=== PATIENT | female | born 1995 | race Caucasian/White ===

== ENCOUNTER 2020-11-22 08:00 | Outpatient (CLI) | payer OTHER ==
[2020-11-22 17:53] LABS: BASOPHILS # (AUTO) 0.1 10^3/uL (0.0-0.1); EOSINOPHILS # (AUTO) 0.5 10^3/uL (0.0-0.7); EOSINOPHILS % (AUTO) 7.2 %; HCT - HEMATOCRIT 40.8 % (37.0-47.0); HGB - HEMOGLOBIN 13.7 g/dL (12.0-16.0); LYMPHOCYTES # (AUTO) 2.3 10^3/uL (1.5-3.5); LYMPHOCYTES % (AUTO) 31.6 %; MEAN CORPUSCULAR HGB CONC 33.6 g/dL (32.0-36.0); MEAN CORPUSCULAR VOLUME 89.3 fL (81.0-99.0); MEAN PLATELET VOLUME 9.6 fL (7.9-10.8); MONOCYTES # (AUTO) 0.6 10^3/uL (0.0-1.0); MONOCYTES % (AUTO) 8.7 %; NEUTROPHILS # (AUTO) 3.7 10^3/uL (1.5-6.6); NEUTROPHILS % (AUTO) 51.4 %; PLT - PLATELET COUNT 379 10^3/uL (130-450); RED BLOOD COUNT 4.57 10^6/uL (4.20-5.40); RED CELL DISTRIBUTION WIDTH 12.3 % (12.0-15.0); WHITE BLOOD COUNT 7.1 x10^3/uL (4.8-10.8)
[2020-11-22 18:19] LABS: THYROID STIMULATING HORMONE 2.73 uIU/mL (0.34-5.60)
== END 2020-11-22 23:59 | disposition home or self-care (01) ==
LOC: LAB.WCP 08:00
PROVIDERS: ATTEND Physician Assistant Medical
DX: Z00.00 Encounter for general adult medical examination without abnormal findings (principal)
CPT/HCPCS: 36415; 84443; 85025

== ENCOUNTER 2021-05-20 16:41 | Outpatient (CLI) | payer OTHER ==
[2021-05-20 18:06] LABS: BASOPHILS # (AUTO) 0.1 10^3/uL (0.0-0.1); BASOPHILS % (AUTO) 0.5 %; EOSINOPHILS # (AUTO) 0.2 10^3/uL (0.0-0.7); EOSINOPHILS % (AUTO) 2.2 %; HCT - HEMATOCRIT 40.2 % (37.0-47.0); HGB - HEMOGLOBIN 13.4 g/dL (12.0-16.0); LYMPHOCYTES # (AUTO) 2.4 10^3/uL (1.5-3.5); MEAN CORPUSCULAR HGB CONC 33.3 g/dL (32.0-36.0); MEAN PLATELET VOLUME 8.7 fL (7.9-10.8); MONOCYTES # (AUTO) 0.8 10^3/uL (0.0-1.0); MONOCYTES % (AUTO) 7.4 %; NEUTROPHILS # (AUTO) 6.9 10^3/uL (1.5-6.6); NEUTROPHILS % (AUTO) 66.6 %; PLT - PLATELET COUNT 362 10^3/uL (130-450); RED BLOOD COUNT 4.62 10^6/uL (4.20-5.40); WHITE BLOOD COUNT 10.3 x10^3/uL (4.8-10.8)
--- NOTE | 2021-05-21 11:08 | Ultrasound Report ---
PROCEDURE: OB First Trimester w/TV INDICATIONS: POSITIVE TEST OUTSIDE/PRIOR DATING DATA: Last menstrual period (LMP): 03/28/2021. LMP-based estimated date of delivery (KELLEE): 01/02/2022. First dating scan (date and location): 05/20/2021. Estimated date of delivery (KELLEE) from first dating scan: Unknown. TECHNIQUE: Real-time scanning was performed of the fetus and maternal pelvic organs, with image documentation. Endovaginal scanning was also performed to better visualize the fetus and maternal ovaries. COMPARISON: None FINDINGS: There is a probable gestational sac without a crown-rump length or heartbeat measuring 1.2 cm, 6 weeks 0 days. Measurement variability in dating: +/- 4 weeks by LMP, +/- 7 days by mean sac diameter (use before 6 weeks gestation if crown-rump length not able to be measured), +/- 5 days by crown-rump length (6-12 weeks gestation). Maternal organs: Right ovarian corpus luteal cyst. IMPRESSION: Probable very early intrauterine with mean sac diameter, with a crown-rump length heartbeat present. Comment: Recommend correlation with serial beta-hCGs and possible repeat ultrasound in 1-2 weeks. Reviewed by: Juan Bassett MD on 05/21/2021 11:07 AM PST Approved by: Juan Bassett MD on 05/21/2021 11:07 AM PST Station ID: [id number]
[2021-05-21 11:41] LABS: HEPATITIS B SURFACE ANTIGEN NON-REACTIVE (NON-REACTIVE); HEPATITIS C ANTIBODY NON-REACTIVE (NON-REACTIVE)
[2021-05-21 14:40] LABS: HIV AG/AB 4TH GEN NON-REACTIVE (NON-REACTIVE)
== END 2021-05-20 16:42 | disposition home or self-care (01) ==
LOC: DI 16:41
PROVIDERS: ATTEND Nurse Practitioner Obstetrics & Gynecology
DX: Z32.01 Encounter for pregnancy test, result positive (principal); Z36.89 Encounter for other specified antenatal screening
CPT/HCPCS: 36415; 85025; 86592; 86762; 86787; 86803; 86850; 86900; 86901; 87340; 87389

== ENCOUNTER 2021-06-03 08:00 | Outpatient (CLI) | payer OTHER ==
[2021-06-04 13:25] LABS: BILIRUBIN,URINE NEGATIVE (NEGATIVE); GLUCOSE, URINE (UA) NEGATIVE (NEGATIVE); KETONES,URINE (UA) NEGATIVE (NEGATIVE); LEUKOCYTE ESTERASE, URINE NEGATIVE (NEGATIVE); NITRITE,URINE NEGATIVE (NEGATIVE); OCCULT BLOOD,URINE TRACE-INTA (NEGATIVE); PH,URINE 6.5 PH (5.0-7.5); PROTEIN,URINE NEGATIVE (NEGATIVE); UROBILINOGEN,URINE 0.2 (NORMAL) E.U./dL (NORMAL)
[2021-06-04 13:53] LABS: BACTERIA,URINE None Seen /HPF (None Seen); CLARITY,URINE CLEAR (CLEAR); RBC,URINE None Seen /HPF (0-5); SQUAMOUS EPITHELIAL CELL,UR NONE SEEN (<= Few); WBC,URINE 0-3 /HPF (0-5)
[2021-06-04 22:02] LABS: CHLAMYDIA TRACHOMATIS DNA NEGATIVE (NEGATIVE); NEISSERIA GONORRHOEAE DNA NEGATIVE (NEGATIVE); TRICHOMONAS VAGINALIS DNA NEGATIVE (NEGATIVE)
== END 2021-06-03 23:59 ==
LOC: LAB.WC 08:00
PROVIDERS: ATTEND Nurse Practitioner Obstetrics & Gynecology
DX: Z34.90 Encounter for supervision of normal pregnancy, unspecified, unspecified trimester (principal)
CPT/HCPCS: 81001; 87086; 87491; 87591; 87661

== ENCOUNTER 2021-06-03 18:46 | Outpatient (CLI) | payer OTHER ==
--- NOTE | 2021-06-03 19:51 | Ultrasound Report ---
PROCEDURE: OB First Trimester w/TV INDICATIONS: POSITIVE TEST OUTSIDE/PRIOR DATING DATA: Last menstrual period (LMP): 03/28/2021. LMP-based estimated date of delivery (KELLEE): 01/02/2022. First dating scan (date and location): 06/03/2021. Estimated date of delivery (KELLEE) from first dating scan: 01/13/2022. The below data below was generated using the study generated KELLEE of 01/13/2022 TECHNIQUE: Real-time scanning was performed of the fetus and maternal pelvic organs, with image documentation. Endovaginal scanning was also performed to better visualize the fetus and maternal ovaries. COMPARISON: 05/20/2021 FINDINGS: Embryo: Single intrauterine gestational sac is seen with a pole and yolk sac noted. [place]-rump length measures 1.6 cm. Estimated gestational age based on current study is 8 weeks, 0 day. Heart rate: 162 bpm. No perigestational hemorrhage is seen. Measurement variability in dating: +/- 4 weeks by LMP, +/- 7 days by mean sac diameter (use before 6 weeks gestation if crown-rump length not able to be measured), +/- 5 days by crown-rump length (6-12 weeks gestation). Maternal organs: Left ovary is not well visualized on the current study. Right ovary is seen. 1.3 x 1 .6 x 1.5 cm corpus luteal cyst is again noted in right ovary. IMPRESSION: 1. Single live intrauterine with fetus and yolk sac seen. Estimated gestational age is 8 we eks, 0 day. The heart rate is 162 bpm. 2. Stable appearing corpus luteal cyst in right ovary. Reviewed by: Atul Chandler MD on 06/03/2021 7:50 PM PST Approved by: Atul Chandler MD on 06/03/2021 7:50 PM PST Station ID: [id number]
== END 2021-06-03 18:47 | disposition home or self-care (01) ==
LOC: DI 18:46
PROVIDERS: ATTEND Nurse Practitioner Obstetrics & Gynecology
DX: O34.81 Maternal care for other abnormalities of pelvic organs, first trimester (principal); N83.11 Corpus luteum cyst of right ovary; Z3A.08 8 weeks gestation of pregnancy

== ENCOUNTER 2021-09-16 14:05 | Outpatient (CLI) | payer OTHER ==
--- NOTE | 2021-09-16 17:50 | Ultrasound Report ---
PROCEDURE: OB Detailed Eval INDICATIONS: SUPERVISION OF OUTSIDE/PRIOR DATING DATA: Last menstrual period (LMP): 03/28/2021. LMP-based estimated date of delivery (KELLEE): 01/02/2022. First dating scan (date and location): 06/03/2021. Estimated date of delivery (KELLEE) from first dating scan: 01/13/2022. The below data below was generated using the ultrasound KELLEE of 01/13/2022. TECHNIQUE: Real-time scanning was performed of the fetus, with image documentation and biometric measurements. COMPARISON: 06/03/2021. FINDINGS: General: A single living intrauterine gestation is present. Presentation: Cephalic Placenta: Placental position is posterior, without previa. Amniotic fluid index: 16.9 cm, normal for gestational age. Largest pocket 4.9 cm. heart rate: 145 beats per minute. Maternal cervical canal: 5.4 cm long; normal length is 2.5 cm or more. biometrics: Biparietal diameter: 5.7 cm, 23 weeks 2 days Head circumference: 20.1 cm, 22 weeks 6 days Abdominal circumference: 18.9 cm, 23 weeks 4 days Femur length: 4.3 cm, 24 weeks 1 day Estimated gestational age from initial scan: 23 weeks 0 days. Composite gestational age from present scan: 23 weeks 3 days Estimated weight and percentile: 623 g, 78th percentile Measurement variability in biometric dating: +/- 10 days from 12-20 weeks gestation, +/- 2 weeks from 20-30 weeks gestation, +/- 3 weeks at 30 weeks gestation or later. Anatomic survey: Neuro: Ventricles are normal at less than 10 mm. Cisterna magna is normal at 3-11 mm. Cerebellum i s normal in size and morphology. Nuchal skin fold: Normal at less than 6 mm between 14 and 20 weeks gestational age. Face: Nose and lips, facial profile are normal. Spine: No evidence for spina bifida. Heart: 4-chambered heart is present, with normal ventricular outflow tracts. Diaphragm: Diaphragm is intact. Stomach: Left-sided stomach is present. Kidneys: No hydronephrosis. Normal is less than 5 mm in 2nd trimester, less than 7 mm in 3rd trimester. Cord: 3 vessel cord has orthotopic insertion. Bladder: Normal in size. Extremities: All 4 extremities are visualized. IMPRESSION: 1. Shore living intrauterine at 23 weeks 3 days based on today's ultrasound. This is co ncordant with the first trimester ultrasound. Fetus is at the 78th percentile for weight. 2. Normal placenta and amniotic fluid. 3. Normal and complete anatomic survey. Reviewed by: Ebenezer Amaral MD on 09/16/2021 5:48 PM PDT Approved by: Ebenezer Amaral MD on 09/16/2021 5:48 PM PDT Station ID: [id number]
== END 2021-09-16 14:06 | disposition home or self-care (01) ==
LOC: DI 14:05
PROVIDERS: ATTEND Obstetrics & Gynecology
DX: Z34.02 Encounter for supervision of normal first pregnancy, second trimester (principal); Z36.89 Encounter for other specified antenatal screening

== ENCOUNTER 2022-01-07 07:22 | Inpatient (IN) | payer OTHER ==
[2022-01-07] MEDS ORDERED: AMPICILLIN 2 GM in SODIUM CHLORIDE 0.9% MINIBAG 100 ML IV ONE (07:56)
[2022-01-07] MEDS ORDERED: miSOPROStoL 200 MCG TABLET BC PRN (07:56)
[2022-01-07] MEDS ORDERED: LIDOCAINE-MPF 1% 30 ML VIAL ID PRN (07:56)
[2022-01-07] MEDS ORDERED: ONDANSETRON 4 MG/2 ML VIAL IVP PRN (07:56)
[2022-01-07] MEDS ORDERED: TRANEXAMIC ACID IN NACL 1,000 MG/100 ML BAG IV PRN (07:56)
[2022-01-07] MEDS ORDERED: CARBOPROST TROMETHAMINE 250 MCG/ML AMP IM PRN (07:56)
[2022-01-07] MEDS ORDERED: OXYTOCIN 10 UNIT/ML VIAL IM PRN (07:56)
[2022-01-07] MEDS ORDERED: OXYTOCIN/SODIUM CHLORIDE 500 ML IV PRN (07:56)
[2022-01-07] MEDS ORDERED: METHYLERGONOVINE 0.2 MG/ML VIAL IM PRN (07:56)
[2022-01-07] MEDS ORDERED: SODIUM CHLORIDE FLUSH 0.9% 10 ML SYRINGE IVP PRN (07:56)
--- NOTE | 2022-01-07 08:01 | HISTORY & PHYSICAL EXAMINATION ---
Admit History - Visit Reason Visit Reason: Other - : 2 Parity: 1 Premature: 0 Ectopic: 0 : 1 Care: positive[facility] Risk/History: positive: induced HTN Complications This : positive: induced HTN Smoking Status: Never smoker - Mother's Labs Mother's Blood Type: positive: O Mother's RH: positive: Positive GBS: positive: Group B Strep Positive Rubella Status: positive: Immune Meds/Allgy - Allergies Allergies/Adverse Reactions: Allergies Allergy/AdvReac Type Severity Reaction Status Date / Time No Known Drug Allergies Allergy Verified 01/07/22 08:43 Review of Systems - Constitutional Constitutional: denies: Fatigue, Fever, Chills, Malaise - Eyes Eyes: denies: Blurred vision, Spots in vision, Dipolpia - Cardiovascular Cariovascular: reports: Edema. denies: Irregular heart rate, Palpitations, Chest pain - Respiratory Respiratory: denies: Cough, Wheezing, SOB at rest - Gastrointestinal Gastrointestinal: denies: Abdominal pain, Constipation, Diarrhea, Change in bowel habits, Nausea, Vomiting - Genitourinary Genitourinary: denies: Dysuria - Integumentary Integumentary: denies: Rash, Pruritis - Neurological Neurological: denies: Headache Physical - Abdominal Exam Vital Signs: Temp Pulse Resp BP Pulse Ox 37.7 C 127 H 20 146/97 H 01/07/22 07:31 01/07/22 07:31 01/07/22 07:31 01/07/22 07:31 Contraction Frequency (min/apart): occasional Contraction Intensity: positive: Mild Uterine Resting Tone: positive: Soft - Monitoring Heart Rate Baseline: 140 Strip Review: positive: Category I - Presentation Presentation: positive: Vertex - Vaginal Exam Membranes: positive: Membranes intact Dilation (in cm): 2-3 Effacement (%): 50 Station: positive: -3 Cervical Position: positive: Posterior - Speculum Exam Speculum Exam Performed: positive: No Plan for Labor - Plan For Labor I expect patient to be DC'd or transferred within 96 hours.: Yes Plan for Labor: This 26yo @ 39.1wks gestation by 8.0wk U/S presented to [facility] for medical induction of labor secondary to gestational hypertension. She has been a patient of [facility] since her transfer of care from [facility] at 27wks gestation. She has received consistent care through the duration of her . She has a history of gestational hypertension with her first and was induced at 39wks. She has been taking ASA 81mg daily as prescribed and her blood pressures have remained WNL until yesterday and they have remained only mildly elevated. She denies headaches, visual disturbances, RUQ or epigastric pain. She is also noted to be GBS positive. She is supported by her Hari today. Dating Criteria: LMP: 03/28/2021 KELLEE by LMP 01/02/2022 Initial U/S @ 8.0wks NOT c/w LMP dating (KELLEE by U/S 01/13/2002) FINAL KELLEE 01/13/2022 OB Hx: G1: @ 40.4wks gestation, 11hr labor, 55 min second stage, epidural. Female 7lb 12oz G2: Current Medications: PNV, 81mg ASA daily Allergies: NKDA PMHx: Anxiety Surgical Hx: none Social Hx: Never smoker. No ETOH or IVDA. 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 Family Hx: HTN - mom, dad; heart disease - PGM, MGM, MGF; stroke - MGM, MGF; Breast cancer - paternal aunt; Diabetes - MGM, MGF, mom, dad, uncle; Thyroid disorder - mother; Depression - mother, MGM, MGF course: O pos/Rubella Immune VZV: Immune Genetic testing: declined FAS: 09/16/2021 WNL. Posterior placenta, no previa. Size c/w dating. 3VC. Influenza: 03/2021 COVID Vaccine: #2 10/2020 Tdap 10/14/2021 GBS POSITIVE HSV: Denies in self and partner Physical Exam: Normocephalic, atraumatic Heart RRR w/o M/G/R Lungs CTAB. Abdomen gravid, soft, nontender FHR baseline 140s, moderate variability, + accels, no decels Contractions palpate mild occasionally via tocometry SVE deferred today (yesterday was 2-3/50/-3, posterior, vertex) Bilateral LE's trace edema Mood is good Labs: WBC 11.7 RBC 3.83 Hgb 11.2 Hct 33.0 PLT 277 Creatinine 0.5 AST 18 ALT 16 Urine creatinine 43.5 Urine protein <6 Urine protein/creatinine ratio (not reportable) Assessment: 26yo @ 39.1wks gestation by 8.0wk U/S Gestational hypertension GBS POSITIVE FHR Category I Plan: Admit for active management/medical induction of labor Pre induction cervical ripening with misoprostol 50mcg BC q 4 hrs Continuous monitoring Initiation ampicillin for GBS prophylaxis per protocol Jacuzzi PRN. Nitrous oxide PRN. Epidural per maternal request. Encouraged ambulation and position changes. Anticipate .
[2022-01-07 08:41] LABS: BASOPHILS % (AUTO) 0.3 %; EOSINOPHILS # (AUTO) 0.2 10^3/uL (0.0-0.7); EOSINOPHILS % (AUTO) 1.7 %; HGB - HEMOGLOBIN 11.2 g/dL (12.0-16.0); LYMPHOCYTES # (AUTO) 1.8 10^3/uL (1.5-3.5); LYMPHOCYTES % (AUTO) 15.7 %; MEAN CORPUSCULAR HEMOGLOBIN 29.2 pg (27.0-31.0); MEAN CORPUSCULAR HGB CONC 33.9 g/dL (32.0-36.0); MEAN CORPUSCULAR VOLUME 86.2 fL (81.0-99.0); MEAN PLATELET VOLUME 9.8 fL (7.9-10.8); MONOCYTES # (AUTO) 0.9 10^3/uL (0.0-1.0); MONOCYTES % (AUTO) 7.7 %; NEUTROPHILS # (AUTO) 8.6 10^3/uL (1.5-6.6); NEUTROPHILS % (AUTO) 73.8 %; PLT - PLATELET COUNT 277 10^3/uL (130-450); RED BLOOD COUNT 3.83 10^6/uL (4.20-5.40); RED CELL DISTRIBUTION WIDTH 13.3 % (12.0-15.0); WHITE BLOOD COUNT 11.7 x10^3/uL (4.8-10.8)
[2022-01-07 08:57] LABS: ALBUMIN 2.9 g/dL (3.2-5.5); ALBUMIN/GLOBULIN RATIO 0.8 (1.0-2.2); BILIRUBIN,TOTAL 0.6 mg/dL (0.2-1.0); CALCIUM 9.6 mg/dL (8.5-10.3); CREATININE 0.5 mg/dL (0.4-1.0); POTASSIUM 3.8 mmol/L (3.5-5.0); TOTAL PROTEIN 6.5 g/dL (6.7-8.2)
[2022-01-07] MEDS ORDERED: SODIUM CHLORIDE FLUSH 0.9% 10 ML SYRINGE IVP SCH (09:00)
[2022-01-07] MEDS: LACTATED RINGERS 1,000 ML IV SCH ×2 (09:05→20:12)
[2022-01-07] MEDS: miSOPROStoL 100 MCG TABLET BC SCH ×2 (09:08→13:07)
[2022-01-07 09:23] LABS: CREATININE,URINE 43.5 mg/dL
[2022-01-07 09:52] LABS: TOTAL PROTEIN,URINE TIMED < 6 mg/dL
[2022-01-07] MEDS: AMPICILLIN 1 GM in SODIUM CHLORIDE 0.9% MINIBAG 100 ML IV SCH ×3 (13:08→21:25)
[2022-01-07] MEDS ORDERED: ROPIVACAINE 0.2% 200 MG/100 ML BAG EP ONE (20:37)
[2022-01-07] MEDS ORDERED: ePHEDrine 50 MG/ML VIAL IVP PRN (20:54)
[2022-01-07] MEDS ORDERED: NALOXONE 0.4 MG/ML VIAL IVP PRN (20:54)
[2022-01-07] MEDS ORDERED: ROPIVACAINE 0.2% 200 MG/100 ML BAG EP PRN (20:54)
--- NOTE | 2022-01-07 20:58 | ANESTHESIA ---
Pre-Anesthesia VS, & Labs - Diagnosis induction of labor - Procedure vaginal delivery Vital Signs: Temp Pulse Resp BP Pulse Ox 37.7 C 127 H 20 146/97 H 01/07/22 07:31 01/07/22 07:31 01/07/22 07:31 01/07/22 07:31 Height: 5 ft 4 in Weight (kg): 99.79 kg Body Mass Index: 37.8 BMI Classification: Obese - NPO Other (clear liquids) - Is Patient ?: Yes - Lab Results Current Lab Results: Laboratory Tests 01/07/22 08:34: Sodium 137, Potassium 3.8, Chloride 103, Carbon Dioxide 24, Anion Gap 10.0, BUN 7, Creatinine 0.5, Estimated GFR (MDRD) 147, Glucose 74, Calcium 9.6, Total Bilirubin 0.6, AST 18, ALT 16, Alkaline Phosphatase 137 H, Total Protein 6.5 L, Albumin 2.9 L, Globulin 3.6, Albumin/Globulin Ratio 0.8 L 01/07/22 08:34: WBC 11.7 H, RBC 3.83 L, Hgb 11.2 L, Hct 33.0 L, MCV 86.2, MCH 29.2, MCHC 33.9, RDW 13.3, Plt Count 277, MPV 9.8, Neut # (Auto) 8.6 H, Lymph # (Auto) 1.8, [place] # (Auto) 0.9, Eos # (Auto) 0.2, Baso # (Auto) 0.0, Absolute Nucleated RBC 0.00, Nucleated RBC % 0.0 01/07/22 08:30: Blood Type O POSITIVE, Antibody Screen NEGATIVE Lab results reviewed: Yes Fish Bones: 01/07/22 08:34 01/07/22 08:34 Home Medications and Allergies Active Medications Carboprost Tromethamine (Carboprost Tromethamine 250 Mcg/Ml Amp) 250 mcg IM Q15M PRN PRN Reason: Step 4: Hemorrhage protocol Stop: 01/12/22 07:57 Ephedrine Sulfate (Ephedrine 50 Mg/Ml Vial) 5 mg IVP Q5M PRN PRN Reason: For SBP<100;give until SBP>100 Oxytocin/Sodium Chloride (Pitocin/Sodium Chloride) 500 mls @ 999 mls/hr IV PRN PRN; Protocol PRN Reason: POST- HEMORR PREVENTION Stop: 01/12/22 07:57 Tranexamic Acid (Tranexamic 1,000 Mg/100ml-Nacl) 1,000 mg in 100 mls @ 600 mls/hr IV .ONCE PRN PRN Reason: EBL >1200mL and within 3hr Stop: 01/12/22 07:57 Ampicillin Sodium 1 gm/ Sodium (Chloride) 100 mls @ 200 mls/hr IV Q4H [facility] Last Infusion: 01/07/22 17:54 Dose: Infused Lactated Ringer's (Lr) 1,000 mls @ 100 mls/hr IV .Q10H [facility] Last Admin: 01/07/22 20:12 Dose: 999 mls/hr Ropivacaine (Naropin 0.2%) 200 mg in 100 mls @ 0 mls/hr EP PRN PRN; Protocol PRN Reason: PAIN Lidocaine HCl (Lidocaine-Mpf 1% 30 Ml Vial) 30 ml ID .ONCE PRN PRN Reason: PERINEAL REPAIR Stop: 01/12/22 07:57 Methylergonovine Maleate (Methylergonovine 0.2 Mg/Ml Vial) 0.2 mg IM .ONCE PRN PRN Reason: Step 2: Hemorrhage protocol Stop: 01/12/22 07:57 Misoprostol (Misoprostol 200 Mcg Tablet) 800 mcg BC .ONCE PRN PRN Reason: Step 3: Hemorrhage protocol Stop: 01/12/22 07:57 Misoprostol (Misoprostol 100 Mcg Tablet) 50 mcg BC Q4HR [facility] Last Admin: 01/07/22 13:07 Dose: 50 mcg Naloxone HCl (Naloxone 0.4 Mg/Ml Vial) 0.1 mg IVP Q2M PRN PRN Reason: RR<8 Ondansetron HCl (Ondansetron 4 Mg/2 Ml Vial) 4 mg IVP Q4HR PRN PRN Reason: Nausea / Vomiting Oxytocin (Oxytocin 10 Unit/Ml Vial) 10 unit IM .ONCE PRN PRN Reason: Step one: If no IV access Stop: 01/12/22 07:57 Sodium Chloride (Sodium Chloride Flush 0.9% 10 Ml Syringe) 10 ml IVP 0100,0900,1700 [facility] Sodium Chloride (Sodium Chloride Flush 0.9% 10 Ml Syringe) 10 ml IVP PRN PRN PRN Reason: NEEDED PER PROVIDER ORDERS Allergies/Adverse Reactions: Allergies Allergy/AdvReac Type Severity Reaction Status Date / Time No Known Drug Allergies Allergy Verified 01/07/22 08:43 Anes History & Medical History - Anesthetic History Family history of Anesthesia Complications: Denies Family history of Malignant Hyperthermia: Denies - Medical History Cardiovascular: reports: Hypertension (gestational hypertension) Pulmonary: reports: None Gastrointestinal: reports: None Urinary: reports: None Neuro: reports: None Musculoskeletal: reports: None Endocrine/Autoimmune: reports: None Blood Disorders: reports: None Skin: reports: None Smoking Status: Never smoker Psychosocial: reports: No issues indicated History of Cancer?: No - Obstetrical History : 2 Parity: 1 Events: reports: induced HTN Complications: reports: induced HTN Exam General: Alert, Oriented x3, Cooperative, No acute distress Dental: WNL Mouth Openin Fingerbreadth Neck Mobility: Normal Mallampati classification: II Thyromental Distance: 4-6 cm Plan Anesthesia Type: Epidural Consent for Procedure(s) Verified and Reviewed: Yes Code Status: Attempt Resuscitation ASA classification: 2-Mild systemic disease Is this case an emergency?: No
--- NOTE | 2022-01-07 20:58 | PROVIDER PROGRESS NOTE ---
Labor Progress Note - Uterine Monitoring Uterine Monitoring Mode: positive: External toco Contraction Frequency (min/apart): 2-3 Contraction Intensity: positive: Moderate Uterine Resting Tone: positive: Soft - Monitoring Monitor Mode: positive: External ultrasound Heart Rate Baseline: 140 Heart Rate Variability: positive: Moderate (6-25 bmp) Accelerations: positive: Present, 15x15 Decelerations: positive: None Strip Review: positive: Category I - Vaginal Exam Dilation (in cm): 4-5 Effacement (%): 75 Station: -2 Cervical Position: Posterior - Labor Progress Note Labor Progress Note/Additional Text: S: Feeling more intense discomfort with contractions and rating them 4/10 which is much different than she was feeling previously. Her mood is good and she is feeling like she is ready for an epidural. supportive at the bedside. Continues to deny CANALES, visual disturbances, RUQ or epigastric pain. O: FHR baseline 140s, moderate variability, + accels, no decels. Was previously having occasional variables but following a 500cc fluid bolus this seems to have resolved. Contractions palpate moderate very 4-5 minutes with soft resting tone SVE 4-5/75/-2, posterior. Soft, vertex. Intact membranes A: 26yo @ 39.1wks gestation by 8wk U/S GBS POSITIVE Gestational hypertension Early labor FHR Category I P: Continuous monitoring. Reviewed available options for continued IOL to include AROM vs expectant management at this time and pt elects to proceed with AROM following her epidural placement. Anesthesia notified to present for placement of epidural. Continue Ampicillin for GBS prophylaxis per protocol. Encouraged rotation in bed on peanut ball once comfortable with epidural. AROM with next SVE. Anticipate .
[2022-01-07] MEDS ORDERED: OXYTOCIN/SODIUM CHLORIDE 500 ML IV SCH (23:20)
[2022-01-08] MEDS ORDERED: HYDROCORTISONE 1% CREAM 28 GM TUBE PR PRN (01:58)
[2022-01-08] MEDS ORDERED: WITCH HAZEL/GLYCERIN 1 PAD TOP PRN (01:58)
--- NOTE | 2022-01-08 02:12 | DELIVERY NOTE ---
Delivery Note - Labor Labor: positive: Augmented by ARM, Augmented by oxytocin - Delivery Method Delivery Method: positive: Spontaneous vaginal delivery - Cervical Ripening Method Cervical Ripening Method: positive: Misoprostil - Presentation Presentation: positive: Vertex, ACE - left occiput anterior - Nuchal Cord Nuchal Cord: positive: Present, Reduced - Amniotic Fluid Description Amniotic Fluid Description: positive: Clear - Episiotomy Type Episiotomy Type: positive: None - Laceration Laceration: positive: 2nd degree - Suture Suture Type: positive: Vicryl Suture Size: positive: 2-0 - Delivery Outcome Delivery Outcome: positive: Livebirth - [place]: positive: Placed in direct skin contact with mother, Bulb syringe, Stimulated, Warmed sex: positive: Female - Cord Cord: positive: 3 vessels - Placenta Placenta: positive: Intact, Spontaneous - Estimated Blood Loss Estimated Blood Loss (in cc): 200 - Post Delivery Events Post Delivery Events: positive: No post delivery events - Delivery Comments (Free Text/Narrative) Delivery Comments (Free Text/Narrative): Labor: This 26yo @ 39.2wks gestation by 8.0wk U/S presented on 01/07/2022 for medical induction of labor secondary to gestational hypertension. Cervix was 2-3/50/-3, posterior and vertex. FHR pattern demonstrated Category I pattern with intermittent periods of Category II pattern however overall remained reassuring. She received 2 doses of 50mcg BC miosprostol for pre- induction cervical ripening. Epidural placed per maternal request. AROM occurred at 2109 and was noted to be a large amount of clear fluid. Pitocin initiated for labor augmentation with titration per protocol for a maximum infusion rate of 2mU/mL. She received 4 doses of Ampicillin for GBS prophylaxis per protocol. She progressed to c/c/+2 at 0035. : Normal of viable female on 01/08/2022 @ 0116. Nuchal cord x 1 was reduced. The was placed on maternal abdomen, stimulated, dried, and placed skin to skin. 's were 8/9 at 1 and 5 minutes respectively. Pitocin a dministered via IV for hemostasis. The umbillical cord was allowed to stop pulsating at which time it was doubly clamped by CNM and cut by FOB. Cord blood was obtained. 3VC. Fundal massage and gentle cord traction applied for active management of the third stage. Placenta delivered spontaneously and intact at 0121. EBL 200mL. Fourth stage: Uterine fundus firm and there is no excessive bleeding. The perineum, vagina, and cervix were inspected and noted to have a 2nd degree laceration which was repaired using a 2-[address]-1 needle in standard fashion and under sterile conditions. Vaginal and rectal examinations completed following repair. Tissues well approximated. initiated. Family bonding well. Both mother and baby were left in stable condition.
[2022-01-08] MEDS: ACETAMINOPHEN 500 MG TABLET PO SCH ×3 (04:13→20:23)
[2022-01-08] MEDS: IBUPROFEN 800 MG TABLET PO SCH ×4 (04:13→22:33)
[2022-01-08] MEDS: DOCUSATE SODIUM 100 MG CAPSULE PO SCH ×2 (09:40→20:23)
[2022-01-09 08:21] VITALS: BP 127/64
[2022-01-09] MEDS: ACETAMINOPHEN 500 MG TABLET PO SCH (09:04)
[2022-01-09] MEDS: DOCUSATE SODIUM 100 MG CAPSULE PO SCH (09:04)
[2022-01-09] MEDS: IBUPROFEN 800 MG TABLET PO SCH (09:04)
--- NOTE | 2022-01-09 09:04 | Discharge Plan ---
Discharge Plan Problem Reviewed?: Yes Disposition: Home, Self Care Condition: Good Diet: Regular Activity Restrictions: No Restrictions Shower Restrictions: No Driving Restrictions: No Weight Bearing: Full Weight Instruction Topics: Vaginal After No Smoking: If you smoke, Please STOP! Call for help. Follow-up with: Mariah Doss CNM, ARNP [Provider Admit Priv/Credential] - 1 Week
--- NOTE | 2022-01-09 09:41 | DISCHARGE SUMMARY ---
Discharge Summary Condition at Discharge: Good Discharge Disposition: 01 Home, Self Care - HOSPITAL COURSE Hospital Course: Date of Admission: 01/07/2022 Date of Discharge: 01/09/2022 Diagnosis on Admission: 1. 26yo @ 39.1wks gestation by 8.0wk U/S 2. Gestational hypertension 3. GBS POSITIVE 4. FHR Category I Diagnosis on Discharge: 1. 26yo PPD#1 s/p TSVD viable female infant 2. Second degree perineal laceration - intact 3. Bottle feeding 4. Normal recovery Brief History: She is a patient of [facility] who presented on 01/07/2022 for medical induction of labor secondary to gestational hypertension. Upon arrival she was noted to be 2-3/50/-3, posterior and vertex. She was given 2 doses of 50mcg BC misoprostol for pre-induction cervical ripening. AROM occurred at 2109 and was noted to be a large amount of clear fluid. She was augmented with pitocin for a maximum infusion rate of 2mU/mL. She progressed to spontaneously deliver a viable female infant on 01/08/2022 at 0116. Apgars were 8/9 at 1 and 5 minutes respectively. EBL 200mL. The patient had a 2nd degree perineal laceration which was repaired with a 2-[address]-1 needle in standard fashion and under sterile conditions. She has been doing well in her course. She is ambulating and tolerating a regular diet. She is urinating [id number] difficulty and her lochia is normal. Her pain is well controlled with oral medications. She is bonding well with her baby and initially she breastfed but has now switched to formula which she feels is working better for her. Her blood pressures have returned to normal since delivery. She denies headaches, visual disturbances, right upper quadrant or epigastric pain. She will be discharged home today on day #1 with instructions to continue taking her vitamin while and to continue taking ibuprofen and tylenol over the counter as needed for pain management. She intends to follow up with myself at [facility] in 1 week for routine visit or sooner if needed. She has been given precautions to call if she has any worsening fevers, chills, abdominal pain, increased vaginal bleeding or foul smelling vaginal lochia. She verbalized understanding and agrees to above plan. She denies further questions or concerns at this time. Physical Exam: Heart RRR w/o M/G/R, lungs CTAB, abdomen gravid, soft, nontender, fundus firm at U, perineum intact, light lochia rubra, bilateral LE's trace edema. - ALLERGIES Allergies/Adverse Reactions: Allergies Allergy/AdvReac Type Severity Reaction Status Date / Time No Known Drug Allergies Allergy Verified 01/07/22 08:43 - LABS Result Diagrams: 01/07/22 08:34 01/07/22 08:34
--- NOTE | 2022-01-09 13:50 | Labor Flowsheet ---
Labor Flowsheet Datetime Report Generated by CPN: 01/09/2022 13:50 Datetime: 01/09/2022 08:04 VITAL SIGNS NBP Sys/Norma/Mean (mmHg): 127 : 64 : 80 Pulse: 93 Datetime: 01/08/2022 14:34 SpO2 (%): 99 Datetime: 01/08/2022 04:59 Stage of : Recovery Respirations: 18 Temperature (C): 36.7 Temperature Route: Oral PAIN Pain Scale: 3 Pain Presence: Intermittent Datetime: 01/08/2022 02:59 Pain Type: N/A Datetime: 01/08/2022 01:19 LaborFlag: Labor Datetime: 01/08/2022 01:15 Comments: Indeterminate FHT Datetime: 01/08/2022 01:10 FHR Baseline Rate : 100 Datetime: 01/08/2022 01:00 UTERINE ACTIVITY Monitor Mode: External Frequency (min): 2 - 4 Quality: Moderate Duration (sec): 60 - 80 Pattern: Normal: <= 5 Contractions in 10 Minutes Resting Tone (Palpate): Relaxed ASSESSMENT A Monitor Mode: External US FHR Baseline Changes: No Baseline Change Variability: Minimal - Undetectable to <=5 bpm Accelerations: 10X10 Decelerations: Variable Category: Category II Oxygen Method: Room Air Datetime: 01/08/2022 00:53 Monitor Interventions for FHR: Ultrasound Adjusted Datetime: 01/08/2022 00:50 Communication Comments: godfrey removed with 100 ml additional urine Datetime: 01/08/2022 00:35 VAGINAL EXAM Dilatation (cm): 10.0 Effacement (%): 100 Station: 2 Exam by: Donovan Mcknight Vaginal Bleeding: Normal Show Cervix, Consistency: Soft Cervix, Position: Anterior Datetime: 01/08/2022 00:30 Monitor Interventions for UA: [place] Adjusted Actions for Decelerations: Side to Side Datetime: 01/08/2022 00:17 Contraction Comments: Relaxed resting tones palpated by RN Datetime: 01/07/2022 23:45 MEDICATIONS Pitocin (milliunits): Started @ 2 Medication Comments: Order is to start at 2 mu then increase by 1 mu evewry 30 min Datetime: 01/07/2022 21:59 Vital Sign Comments: MD updated on slight elevation of temp. No other orders received. Datetime: 01/07/2022 21:10 Membrane Status: Ruptured Membranes Rupture Method: Artificial Amniotic Fluid Color: Clear Amniotic Fluid Amount: Large Amniotic Fluid Odor: Normal Datetime: 01/07/2022 21:08 COMMUNICATION Communication: RN at Bedside Datetime: 01/07/2022 20:49 Epidural Procedure: Completed Anesthesia Comments: 10 ml every 50 min PCEA Datetime: 01/07/2022 20:31 PROCEDURE TIME OUT Procedure Type: epidural Datetime: 01/07/2022 20:30 ANESTHESIA Epidural Positioning: Sitting Datetime: 01/07/2022 20:27 Procedure Verify: Correct Patient Identity; Correct Side and Site are Marked; Accurate Procedure Co nsent Form; Agreement on Procedure to be Done; Correct Patient Position; Relevant Images and Results are Properly Labeled and Displayed; Addressed Need to Administer Antibiotics or Fluids for Irrigation ; Safety Precautions Based on Patient History or Medication Use Datetime: 01/07/2022 19:10 Pain Location: Abdomen Datetime: 01/07/2022 18:28 I/O Interventions: Up to BR Datetime: 01/07/2022 17:24 Antibiotics: Ampicillin IV 1 Gm Datetime: 01/07/2022 17:11 Provider Notified (Name): CNM Romario Notification Reason: Status Update Datetime: 01/07/2022 16:18 Patient Care Comments: Returned from BR, ambulating in room Datetime: 01/07/2022 16:02 PATIENT CARE IV/Blood Work: IV Bolus Started Datetime: 01/07/2022 15:57 Provider Reviewed Strip: No
== END 2022-01-09 09:55 | disposition home or self-care (01) | DRG 807 ==
LOC: WFO 07:22 → FBP 07:30 → WFO 07:55 → FBP 07:56
PROVIDERS: ADMIT Nurse Practitioner Obstetrics & Gynecology; ATTEND Nurse Practitioner Obstetrics & Gynecology
PROC: 3E0DXGC Introduction of Other Therapeutic Substance into Mouth and Pharynx, External Approach (ICD-10-PCS; 2022-01-07)
PROC: 10907ZC Drainage of Amniotic Fluid, Therapeutic from Products of Conception, Via Natural or Artificial Opening (ICD-10-PCS; 2022-01-07)
PROC: 10E0XZZ Delivery of Products of Conception, External Approach (ICD-10-PCS; principal; 2022-01-08)
PROC: 0KQM0ZZ Repair Perineum Muscle, Open Approach (ICD-10-PCS; 2022-01-08)
DX: O13.4 Gestational [pregnancy-induced] hypertension without significant proteinuria, complicating childbirth (principal); Z37.0 Single live birth; O70.1 Second degree perineal laceration during delivery; O99.824 Streptococcus B carrier state complicating childbirth; Z3A.39 39 weeks gestation of pregnancy; O99.344 Other mental disorders complicating childbirth; F41.9 Anxiety disorder, unspecified; O69.81X0 Labor and delivery complicated by cord around neck, without compression, not applicable or unspecified; Z79.82 Long term (current) use of aspirin; Z80.3 Family history of malignant neoplasm of breast; Z81.8 Family history of other mental and behavioral disorders; Z82.3 Family history of stroke; Z82.49 Family history of ischemic heart disease and other diseases of the circulatory system; Z83.3 Family history of diabetes mellitus; Z83.49 Family history of other endocrine, nutritional and metabolic diseases
CPT/HCPCS: 36415; 80053; 82570; 84156; 85025; 86850; 86900; 86901; A9270; J7120

== ENCOUNTER 2022-04-17 14:18 | Emergency (ER) | payer OTHER ==
[2022-04-17 15:30] LABS: BASOPHILS % (AUTO) 0.5 %; EOSINOPHILS # (AUTO) 0.5 10^3/uL (0.0-0.7); EOSINOPHILS % (AUTO) 5.6 %; HCT - HEMATOCRIT 42.4 % (37.0-47.0); HGB - HEMOGLOBIN 13.8 g/dL (12.0-16.0); LYMPHOCYTES # (AUTO) 2.4 10^3/uL (1.5-3.5); LYMPHOCYTES % (AUTO) 28.5 %; MEAN CORPUSCULAR HEMOGLOBIN 27.6 pg (27.0-31.0); MEAN CORPUSCULAR HGB CONC 32.5 g/dL (32.0-36.0); MEAN CORPUSCULAR VOLUME 84.8 fL (81.0-99.0); MEAN PLATELET VOLUME 9.2 fL (7.9-10.8); MONOCYTES # (AUTO) 0.4 10^3/uL (0.0-1.0); MONOCYTES % (AUTO) 5.2 %; NEUTROPHILS % (AUTO) 59.8 %; PLT - PLATELET COUNT 390 10^3/uL (130-450); WHITE BLOOD COUNT 8.3 x10^3/uL (4.8-10.8)
[2022-04-17 15:32] LABS: BILIRUBIN,URINE NEGATIVE (NEGATIVE); GLUCOSE, URINE (UA) NEGATIVE (NEGATIVE); KETONES,URINE (UA) NEGATIVE (NEGATIVE); LEUKOCYTE ESTERASE, URINE NEGATIVE (NEGATIVE); NITRITE,URINE NEGATIVE (NEGATIVE); OCCULT BLOOD,URINE MODERATE (NEGATIVE); PROTEIN,URINE NEGATIVE (NEGATIVE); UROBILINOGEN,URINE 0.2 (NORMAL) E.U./dL (NORMAL)
[2022-04-17 15:33] LABS: CLARITY,URINE CLEAR (CLEAR)
[2022-04-17 15:43] LABS: ALBUMIN 4.8 g/dL (3.2-5.5); ALBUMIN/GLOBULIN RATIO 1.6 (1.0-2.2); BILIRUBIN,TOTAL 0.5 mg/dL (0.2-1.0); CALCIUM 10.1 mg/dL (8.5-10.3); CREATININE 0.7 mg/dL (0.4-1.0); POTASSIUM 4.6 mmol/L (3.5-5.0); TOTAL PROTEIN 7.8 g/dL (6.7-8.2)
[2022-04-17 15:43] LABS: BACTERIA,URINE Rare /HPF (None Seen); RBC,URINE TNTC /HPF (0-5); SQUAMOUS EPITHELIAL CELL,UR RARE Squamous (<= Few); WBC,URINE 0-3 /HPF (0-5)
[2022-04-17 16:48] LABS: HCG UR QUAL NEGATIVE
[2022-04-17] MEDS ORDERED: iohexoL-300 100 ML VIAL IVP ONE (17:46)
--- NOTE | 2022-04-17 18:02 | CT Report ---
PROCEDURE: ABDOMEN/PELVIS W INDICATIONS: diffuse abd pain, mainly lower CONTRAST: 100ml omni 300 TECHNIQUE: After the administration of intravenous contrast, 5 mm thick sections acquired from the diaphragms to the symphysis. 5 mm thick coronal and sagittal reformats were acquired. For radiation dose reducti on, the following was used: automated exposure control, adjustment of mA and/or kV according to renetta ent size. COMPARISON: None. FINDINGS: Image quality: Excellent. ABDOMEN: Lung bases: Lung bases are clear. Heart size is normal. Solid organs: Liver and spleen are normal in size and enhancement. Gallbladder is unremarkable. Bi liary system is non dilated. Pancreas enhances normally. No adrenal nodules. Kidneys demonstrate n ormal size and enhancement, without hydronephrosis. Peritoneum and bowel: Bowel loops demonstrate normal wall thickness and caliber. No free fluid or a ir. Nodes and vessels: No retroperitoneal or mesenteric adenopathy by size criteria. Aorta and inferior vena cava are normal in size. Miscellaneous: No ventral hernias. PELVIS: Genitourinary: Bladder wall thickness is normal. Miscellaneous: No inguinal hernias or adenopathy. Bones: No suspicious bony lesions. No vertebral body compression fractures. IMPRESSION: No evidence of acute abdominal process. Reviewed by: Juan Bassett MD on 04/17/2022 6:01 PM PDT Approved by: Juan Bassett MD on 04/17/2022 6:01 PM PDT Station ID: [id number]
--- NOTE | 2022-04-17 18:19 | ED Physician Documentation ---
PD HPI ABD PAIN - Stated complaint Stated Complaint: ABD PX/BACK PX - Chief complaint Chief Complaint: Abd Pain - History obtained from History obtained from: Patient - History of Present Illness Timing - onset: Today Timing - duration: Hours (1) Timing - details: Abrupt onset, Now resolved Pain level max: 8 Pain level now: 5 Quality: Cramping, Sharp Improved by: No: Eating, Laying still, Vomiting, BM, Position, Meds Worsened by: No: Eating, Moving, Breathing, Position, Palpation Associated symptoms: No: Fever, Nausea, Vomiting, Hematemesis, Diarrhea, Constipation, Melena, Hematochezia, Dysuria, Hematuria, Chest pain, Dizzy, Vaginal bleeding, Vaginal dc - Additional information Additional information: Patient is a 26-year-old female who complains of abdominal pain. She states that this occurred today, lower abdomen sharp and crampy. Also felt the pain in her back. Lasted for about 1 hour and is now completely resolved. She states that she has had 2 other episodes of this over the past few weeks. No diarrhea. No constipation. No fever. No vomiting. She did have a vaginal delivery about 3 months ago. She has not had any vaginal bleeding or discharge. Has not had similar symptoms previously. Nothing makes it better or worse. Fully asymptomatic currently Review of Systems Constitutional: denies: Fever, Chills Respiratory: denies: Dyspnea, Cough : denies: Dysuria, Now EGA Skin: denies: Rash Musculoskeletal: denies: Neck pain, Back pain Neurologic: denies: Headache PD PAST MEDICAL HISTORY - Past Medical History Past Medical History: No - Past Surgical History Past Surgical History: No - Allergies Allergies/Adverse Reactions: Allergies Allergy/AdvReac Type Severity Reaction Status Date / Time No Known Drug Allergies Allergy Verified 04/17/22 15:14 - Living Situation Living Situation: reports: With family Living Arrangement: reports: At home - Social History Smoking Status: Never smoker PD ED PE NORMAL - Vitals Vital signs reviewed: Yes - General General: Alert and oriented X 3, No acute distress, Well developed/nourished - HEENT HEENT: PERRL, Moist mucous membranes - Neck Neck: Supple, no meningeal sign - Cardiac Cardiac: RRR, Strong equal pulses - Respiratory Respiratory: No respiratory distress, Clear bilaterally - Abdomen Abdomen: Normal bowel sounds, Soft, Non tender, Non distended - Back Back: No CVA TTP - Derm Derm: Warm and dry - Extremities Extremities: No edema - Neuro Neuro: Alert and oriented X 3 - Psych Psych: Normal mood, Normal affect Results - Vitals Vitals: Vital Signs - 24 hr 04/17/22 04/17/22 15:10 18:27 Temperature 36.5 C Heart Rate 62 57 L Respiratory 16 20 Rate Blood Pressure 138/76 H 132/88 H O2 Saturation 98 100 Oxygen O2 Source Room air - Labs Labs: Laboratory Tests 04/17/22 04/17/22 04/17/22 15:22 15:22 15:26 WBC 8.3 RBC 5.00 Hgb 13.8 Hct 42.4 MCV 84.8 MCH 27.6 MCHC 32.5 RDW 13.0 Plt Count 390 MPV 9.2 Neut # (Auto) 5.0 Lymph # (Auto) 2.4 [place] # (Auto) 0.4 Eos # (Auto) 0.5 Baso # (Auto) 0.0 Absolute Nucleated RBC 0.00 Nucleated RBC % 0.0 Sodium Potassium Chloride Carbon Dioxide Anion Gap BUN Creatinine Estimated GFR (MDRD) Glucose Calcium Total Bilirubin AST ALT Alkaline Phosphatase Total Protein Albumin Globulin Albumin/Globulin Ratio Lipase Urine Color YELLOW Urine Clarity CLEAR Urine pH 7.0 Ur Specific [place] 1.015 Urine Protein NEGATIVE Urine Glucose (UA) NEGATIVE Urine Ketones NEGATIVE Urine Occult Blood MODERATE H Urine Nitrite NEGATIVE Urine Bilirubin NEGATIVE Urine Urobilinogen 0.2 (NORMAL) Ur Leukocyte Esterase NEGATIVE Urine RBC TNTC H Urine WBC 0-3 Ur Squamous Epith Cells RARE Squamous Urine Bacteria Rare Ur Microscopic Review INDICATED Urine Culture Comments NOT INDICATED Urine HCG, Qual NEGATIVE 04/17/22 15:26 WBC RBC Hgb Hct MCV MCH MCHC RDW Plt Count MPV Neut # (Auto) Lymph # (Auto) [place] # (Auto) Eos # (Auto) Baso # (Auto) Absolute Nucleated RBC Nucleated RBC % Sodium 140 Potassium 4.6 Chloride 101 Carbon Dioxide 28 Anion Gap 11.0 BUN 11 Creatinine 0.7 Estimated GFR (MDRD) 100 Glucose 94 Calcium 10.1 Total Bilirubin 0.5 AST 23 ALT 18 Alkaline Phosphatase 69 Total Protein 7.8 Albumin 4.8 Globulin 3.0 Albumin/Globulin Ratio 1.6 Lipase 43 Urine Color Urine Clarity Urine pH Ur Specific [place] Urine Protein Urine Glucose (UA) Urine Ketones Urine Occult Blood Urine Nitrite Urine Bilirubin Urine Urobilinogen Ur Leukocyte Esterase Urine RBC Urine WBC Ur Squamous Epith Cells Urine Bacteria Ur Microscopic Review Urine Culture Comments Urine HCG, Qual - Rads (name of study) CT abdomen pelvis Radiology: Final report received, EMP read contemporaneously, See rad report (No acute abnormality) PD MEDICAL DECISION MAKING - ED course Complexity details: reviewed results, re-evaluated patient, considered differential, d/w patient, d/w family ED course: 18-year-old female with abdominal pain of unclear etiology. Occurred prior to arrival and is since resolved. No acute findings on laboratory testing, CT scan. Recommend that she follow-up with her doctor for further care. May need a GI work-up. Possible IBS? Recommend a food diary. Patient is well- appearing, nontoxic. Afebrile. Patient counseled regarding signs and symptoms for which I believe and urgent re-evaluation would be necessary. Patient with good understanding of and agreement to plan and is comfortable going home at this time This document was made in part using voice recognition software. While efforts are made to proofread this document, sound alike and grammatical errors may occur. Departure - Departure Disposition: 01 Home, Self Care Clinical Impression: Abdominal pain Qualifiers: Abdominal location: generalized Qualified Code(s): R10.84 - Generalized abdominal pain Condition: Good Instructions: ED Abdominal Pain Female Non-Specific Abdominal Pain Follow-Up: your,doctor in 1 week [Other] Comments: The cause of your symptoms is unclear today. Please follow-up with your doctor for further care. Your laboratory testing and CT scan do not show any acute abnormalities. Discharge Date/Time: 04/17/22 18:32
[2022-04-17 18:28] VITALS: BP 132/88
== END 2022-04-17 18:32 | disposition home or self-care (01) ==
LOC: ED 14:18
DX: R10.84 Generalized abdominal pain (principal); M54.9 Dorsalgia, unspecified
CPT/HCPCS: 36415; 80053; 81001; 81003; 81025; 83690; 85025; 87086; 99282; 99284

== ENCOUNTER 2022-05-20 20:11 | Outpatient (CLI) | payer OTHER ==
--- NOTE | 2022-05-21 03:39 | Ultrasound Report ---
PROCEDURE: Abdomen Limited INDICATIONS: RIGHT UPPER QUAD ABD PAIN TECHNIQUE: Real-time focused scanning was performed of the abdomen, with image documentation. COMPARISON: CT abdomen pelvis 04/17/2022. FINDINGS: The liver demonstrates increased echogenicity and mild coarse sonographic echotexture suggestive of f atty infiltration. The gallbladder is partially distended limiting evaluation of gallbladder thickness. Gallbladder wall is borderline thickened, measuring up to 0.3 cm. No stones, definite wall thickening, or pericholecy stic fluid. A few echogenic foci are demonstrated within the gallbladder wall with posterior ringdown artifact.. IMPRESSION: 1. No evidence of cholelithiasis or definite cholecystitis. 2. Small echogenic foci within the gallbladder wall with posterior ringdown artifact are nonspecific and may represent cholesterol crystals or adenomyomatosis. Reviewed by: Tevin Ibanez MD on 05/21/2022 3:38 AM PST Approved by: Tevin Ibanez MD on 05/21/2022 3:38 AM PST Station ID: [id number]
== END 2022-05-20 20:12 | disposition home or self-care (01) ==
LOC: DI 20:11
PROVIDERS: ATTEND Physician Assistant Medical
DX: R10.11 Right upper quadrant pain (principal)